=== PATIENT | male | born 1965 | race Caucasian/White ===

== ENCOUNTER 2020-12-28 10:01 | Outpatient (REF) | payer OTHER, SELFPAY ==
[2020-12-28 10:04] LABS: MANUAL DIFF FLAG NO
[2020-12-28 10:37] LABS: Basophils Percent Auto 0.2 % (0-2); Eosinophils Absolute Auto 0.1 X10*3/uL (0.0-0.4); Eosinophils Percent Auto 1.6 % (0-4); Hematocrit 41.9 % (42.0-52.0); Hemoglobin 14.4 g/dl (14.0-18.0); Imm Gran Abs Auto 0.01 X10*3/uL (0.00-0.03); Imm Gran Pct Auto 0.2 % (0.0-0.4); Lymphocytes Percent Auto 23.2 % (20-40); Mean Corpuscular HGB Conc 34.4 g/dl (31.0-36.0); Mean Corpuscular Hemoglobin 31.6 pg (27.0-33.0); Mean Corpuscular Volume 91.9 fL (80.0-98.0); Mean Platelet Volume 10.4 fL (9.4-12.4); Monocytes Absolute Auto 0.6 X10*3/uL (0.1-1.2); Monocytes Percent Auto 12.7 % (2-11); Neutrophils Absolute Auto 2.8 x10*3/uL (2.0-8.3); Neutrophils Percent Auto 62.1 % (45-73); Platelet Count 290 X10*3/uL (160-400); Red Blood Count 4.56 X10*6/uL (4.60-5.80); White Blood Count 4.5 X10*3/uL (4.8-10.8)
[2020-12-28 10:56] LABS: Alanine Aminotransferase 32 U/L (0-40); Albumin Level 4.4 g/dL (3.5-5.0); Alkaline Phosphatase 63 U/L (39-117); Anion Gap 11 (12-20); Aspartate Amino Transferase 20 U/L (5-37); Bilirubin Total 0.5 mg/dL (0.0-1.0); Blood Urea Nitrogen 12 mg/dL (9-16); Calcium 8.8 mg/dL (8.4-10.2); Carbon Dioxide 30 mmol/L (22-29); Chloride 101 mmol/L (96-108); Cholesterol 184 mg/dL; Estimated Glomerular Filt Rate > 60; Glucose Fasting 93 mg/dL (60-99); HDL Cholesterol 48 mg/dL; LDL Cholesterol Calculated 127 mg/dl; Potassium 4.1 mmol/L (3.3-5.1); Sodium 138 mmol/L (135-145); Total Protein 6.9 g/dL (6.5-8.0); Triglycerides 47 mg/dL
[2020-12-28 11:09] LABS: Appearance Urine CLEAR; Color Urine YELLOW; Glucose Urine UA NEG (NEG); Leukocyte Esterase Urine NEG (NEG); Nitrite Urine NEG (NEG); Urine Blood NEG (NEG); Urine Ketones NEG (NEG); Urine Protein NEG (NEG-TRACE)
[2020-12-28 11:18] LABS: PSA,Total (Free>4and<10) 0.73 ng/mL (0.00-4.00)
== END 2020-12-28 10:02 | disposition home or self-care (01) ==
LOC: HO.LNP 10:01
PROVIDERS: PCP Internal Medicine; Visit Provider Internal Medicine
DX: Z00.00 Encounter for general adult medical examination without abnormal findings (principal); Z12.5 Encounter for screening for malignant neoplasm of prostate; I10 Essential (primary) hypertension
CPT/HCPCS: 80053; 80061; 81003; 84153; 85025

== ENCOUNTER 2022-01-27 12:01 | Outpatient (REF) | payer BC, SELFPAY ==
[2022-01-27 12:04] LABS: MANUAL DIFF FLAG NO
[2022-01-27 12:08] LABS: Basophils Percent Auto 0.4 % (0-2); Eosinophils Absolute Auto 0.1 X10*3/uL (0.0-0.4); Eosinophils Percent Auto 1.6 % (0-4); Hematocrit 41.7 % (42.0-52.0); Hemoglobin 14.3 g/dl (14.0-18.0); Imm Gran Abs Auto 0.01 X10*3/uL (0.00-0.03); Imm Gran Pct Auto 0.2 % (0.0-0.4); Lymphocytes Absolute Auto 1.2 X10*3/uL (1.2-4.9); Lymphocytes Percent Auto 23.9 % (20-40); Mean Corpuscular HGB Conc 34.3 g/dl (31.0-36.0); Mean Corpuscular Hemoglobin 31.8 pg (27.0-33.0); Mean Corpuscular Volume 92.9 fL (80.0-98.0); Mean Platelet Volume 10.7 fL (9.4-12.4); Monocytes Absolute Auto 0.6 X10*3/uL (0.1-1.2); Monocytes Percent Auto 12.3 % (2-11); Neutrophils Percent Auto 61.6 % (45-73); Platelet Count 270 X10*3/uL (160-400); Red Blood Count 4.49 X10*6/uL (4.60-5.80); Red Cell Distribution Width 11.9 % (11.0-16.0); White Blood Count 4.9 X10*3/uL (4.8-10.8)
[2022-01-27 12:09] LABS: Appearance Urine Clear; Color Urine Yellow; Glucose Urine UA Negative (Negative); Leukocyte Esterase Urine Negative (Negative); Nitrite Urine Negative (Negative); Specific Gravity - Urine 1.015 (1.005-1.025); Urine Blood Negative (Negative); Urine Ketones Negative (Negative); Urine Protein Negative (Neg-Trace)
[2022-01-27 12:12] LABS: Bacteria Urine None Seen (None Seen); Hyaline Casts Urine 0-2 /LPF (0-2); RBC Urine 0-2 /HPF (0-2); Squamous Epithelial Cell Urine 0-2 /HPF (0-2); WBC Urine 0-5 /HPF (0-5)
[2022-01-27 13:10] LABS: Alanine Aminotransferase 26 U/L (0-40); Albumin Level 4.5 g/dL (3.5-5.0); Alkaline Phosphatase 65 U/L (39-117); Anion Gap 11 (12-20); Aspartate Amino Transferase 20 U/L (5-37); Bilirubin Total 0.7 mg/dL (0.0-1.0); Blood Urea Nitrogen 18 mg/dL (9-16); Calcium 9.1 mg/dL (8.4-10.2); Carbon Dioxide 29 mmol/L (22-29); Chloride 103 mmol/L (96-108); Cholesterol 215 mg/dL; Estimated Glomerular Filt Rate > 60; Glucose Fasting 91 mg/dL (60-99); HDL Cholesterol 55 mg/dL; LDL Cholesterol Calculated 148 mg/dl; PSA,Total (Free>4and<10) 0.79 ng/mL (0.00-4.00); Potassium 4.1 mmol/L (3.3-5.1); Sodium 139 mmol/L (135-145); Total Protein 6.9 g/dL (6.5-8.0); Triglycerides 64 mg/dL
== END 2022-01-27 12:02 | disposition home or self-care (01) ==
LOC: HO.LNP 12:01
PROVIDERS: Visit Provider Internal Medicine
DX: Z00.00 Encounter for general adult medical examination without abnormal findings (principal); Z12.5 Encounter for screening for malignant neoplasm of prostate; I10 Essential (primary) hypertension
CPT/HCPCS: 80053; 80061; 81001; 84153; 85025

== ENCOUNTER 2023-02-01 11:15 | Outpatient (REF) | payer BC, SELFPAY ==
[2023-02-01 11:18] LABS: MANUAL DIFF FLAG NO
[2023-02-01 11:26] LABS: Basophils Percent Auto 0.2 % (0-2); Eosinophils Absolute Auto 0.1 X10*3/uL (0.0-0.4); Eosinophils Percent Auto 1.4 % (0-4); Hematocrit 41.4 % (42.0-52.0); Hemoglobin 14.2 g/dl (14.0-18.0); Imm Gran Abs Auto 0.02 X10*3/uL (0.00-0.03); Imm Gran Pct Auto 0.4 % (0.0-0.4); Lymphocytes Absolute Auto 1.3 X10*3/uL (1.2-4.9); Lymphocytes Percent Auto 25.5 % (20-40); Mean Corpuscular HGB Conc 34.3 g/dl (31.0-36.0); Mean Corpuscular Hemoglobin 31.1 pg (27.0-33.0); Mean Corpuscular Volume 90.6 fL (80.0-98.0); Mean Platelet Volume 10.5 fL (9.4-12.4); Monocytes Absolute Auto 0.6 X10*3/uL (0.1-1.2); Monocytes Percent Auto 11.4 % (2-11); Neutrophils Percent Auto 61.1 % (45-73); Platelet Count 270 X10*3/uL (160-400); Red Blood Count 4.57 X10*6/uL (4.60-5.80); Red Cell Distribution Width 12.2 % (11.0-16.0)
[2023-02-01 11:28] LABS: Appearance Urine Clear; Color Urine Yellow; Glucose Urine UA Negative (Negative); Leukocyte Esterase Urine Negative (Negative); Nitrite Urine Negative (Negative); PH 7.5 (5.0-9.0); Specific Gravity - Urine 1.015 (1.005-1.025); Urine Blood Negative (Negative); Urine Ketones Negative (Negative); Urine Protein Negative (Neg-Trace)
[2023-02-01 11:44] LABS: Bacteria Urine None Seen (None Seen); Hyaline Casts Urine 0-2 /LPF (0-2); RBC Urine 0-2 /HPF (0-2); Squamous Epithelial Cell Urine 0-2 /HPF (0-2); WBC Urine 0-5 /HPF (0-5)
[2023-02-01 11:50] LABS: Alanine Aminotransferase 28 U/L (0-40); Albumin Level 4.4 g/dL (3.5-5.0); Alkaline Phosphatase 59 U/L (39-117); Anion Gap 11 (12-20); Aspartate Amino Transferase 20 U/L (5-37); Bilirubin Total 0.6 mg/dL (0.0-1.0); Blood Urea Nitrogen 13 mg/dL (9-16); Calcium 9.3 mg/dL (8.4-10.2); Carbon Dioxide 31 mmol/L (22-29); Chloride 102 mmol/L (96-108); Cholesterol 204 mg/dL (<200); Estimated Glomerular Filt Rate > 60; Glucose Fasting 91 mg/dL (60-99); HDL Cholesterol 56 mg/dL (>40); LDL Cholesterol Calculated 135 mg/dL (<100); Sodium 140 mmol/L (135-145); Total Protein 7.2 g/dL (6.5-8.0); Triglycerides 68 mg/dL (<150)
[2023-02-01 12:13] LABS: PSA,Total (Free>4and<10) 0.77 ng/mL (0.00-4.00)
== END 2023-02-01 11:16 | disposition home or self-care (01) ==
LOC: HO.LNP 11:15
PROVIDERS: Visit Provider Internal Medicine
DX: Z00.00 Encounter for general adult medical examination without abnormal findings (principal); Z12.5 Encounter for screening for malignant neoplasm of prostate; E78.00 Pure hypercholesterolemia, unspecified; I10 Essential (primary) hypertension
CPT/HCPCS: 80053; 80061; 81001; 84153; 85025

== ENCOUNTER 2023-08-17 06:58 | Day surgery (SDC) | payer OTHER, SELFPAY ==
[2023-08-15 11:44] VITALS: BMI 26.1
--- NOTE | 2023-08-16 10:29 | P.CONAN_ITS ---
Documented by User: Eileen Ramsey NP 08/16/23 10:29 HPI - Anesthesia Eval Consult details Narrative: 58yo M for Colonoscopy [facility] Past Medical History Medical History (Updated 08/15/23 @ 11:41 by Bhavani Araujo RN) HTN (hypertension) Hemorrhoids Surgical History Surgical History (Updated 08/15/23 @ 11:42 by Bhavani Araujo RN) History of hemorrhoidectomy Hx of hernia repair H/O colonoscopy Social History Social History Patient Tobacco Use Status: Never used Tobacco Advance Directives: No Advance Directives Information Provided: Yes Recently lost weight without trying: No Nutrition Risks: No Nutritional Risk Meds Allergies Allergy/AdvReac Type Severity Reaction Status Date / Time No Known Allergies Allergy Unverified 10/23/19 16:08 Home Medications ?Medication ?Instructions ?Recorded ?Confirmed ?Last Taken ?Type losartan 50 mg-hydrochlorothiazide 1 tab PO DAILY 08/15/23 08/17/23 08/17/23 History 12.5 mg tablet Exam Height,Weight and Vital Signs: Height 6 ft 0.5 in Weight 88.451 kg Assessment and Plan Assessment Anesthesia Assessment: Chart Reviewed Documented by User: Marizol Dove MD 08/17/23 07:36 [facility] Past Medical History Medical History (Updated 08/15/23 @ 11:41 by Bhavani Araujo RN) HTN (hypertension) Hemorrhoids Family History Family history of problems with anesthesia: No Surgical History Surgical History (Updated 08/15/23 @ 11:42 by Bhavani Araujo RN) History of hemorrhoidectomy Hx of hernia repair H/O colonoscopy History of Problems with Anesthesia: No Social History Social History Patient Tobacco Use Status: Never used Tobacco Advance Directives: No Advance Directives Information Provided: Yes Recently lost weight without trying: No Nutrition Risks: No Nutritional Risk Meds Allergies Allergy/AdvReac Type Severity Reaction Status Date / Time No Known Allergies Allergy Unverified 10/23/19 16:08 Home Medications ?Medication ?Instructions ?Recorded ?Confirmed ?Last Taken ?Type losartan 50 mg-hydrochlorothiazide 1 tab PO DAILY 08/15/23 08/17/23 08/17/23 History 12.5 mg tablet Exam Airway Mallampati Class: II TM Dist: >3cm Neck ROM: Full Assessment and Plan Assessment Anesthesia Assessment: Anesthesia Plan Discussed Final Anesthetic Review Family History of Problems with Anesthesia: No History of Problems with Anesthesia: No NPO: Yes ASA Class: II Final Preanesthetic Review: No Changes in Pt Med Stat, Meds/Allgs Chart Reviewed, Consent Obtained/Reviewed and Anes Risks/Benef Reviewed Patient Risk: Low Procedure Risk: Low Anesthetic Plan Anesthetic Plan: TIVA Disposition: Standard PACU
[2023-08-17 06:59] VITALS: BP 118/77; PULSE 70; RESP 18; TEMP 36.9; O2SAT 98; BMI 26.3
[2023-08-17] MEDS: Lactated Ringers 1,000 ML 100 ML IVCONT (07:19)
--- NOTE | 2023-08-17 08:15 | P.HPSUR_ITS ---
Pre-Procedural Eval Section A - 24 Hr Update-Section A only Date of Service: 08/17/23 Section B - Complete if H&P > 30 days Chief Complaint: Encounter for screening for malignant neoplasm of Details of Present Illness: see H&P no changes Relevant Family History (Specify if Yes): No Relevant Social History: None Present Medications: see Short Stay Collaborative assessment Medical History: No relevant PMH History of Previous Operations: No relevant previous surgery Allergies: Allergies Allergy/AdvReac Type Severity Reaction Status Date / Time No Known Allergies Allergy Unverified 10/23/19 16:08 Review of Systems Sugical H&P ROS: Negative: Constitution, Cardiovascular, Respiratory, Neurological, Psychiatric, Hem-Onc, Allergic/Immunologic, Gastrointestinal, Genitourinary, Musculoskeletal, Integumentary, Endocrine and Eyes/Ears/ Nose/Throat Exam Surgical H&P Exam: Normal: HEENT, Normal: Heart, Normal: Lungs, Normal: Extremities, Normal: Abdomen, Normal: Skin and Normal: Neurological Plan Diagnosis/Plan: Unchanged I have reviewed the history and physical and performed a pertinent physical examination on my patient. No changes have occurred unless specified. Time Spent With Patient Time: Total time managing care of this patient today ____ minutes.
[2023-08-17 08:52] VITALS: BP 90/50; PULSE 66; RESP 16; TEMP 36.4; O2SAT 96
[2023-08-17 08:58] VITALS: BP 96/63; PULSE 63; RESP 16; O2SAT 96
[2023-08-17 09:05] VITALS: BP 101/70; PULSE 73; RESP 16; O2SAT 96
[2023-08-17 09:20] VITALS: BP 111/68; PULSE 50; RESP 16; TEMP 36.2; O2SAT 99
[2023-08-17 09:34] VITALS: BP 110/76; PULSE 52; RESP 16; TEMP 36.2; O2SAT 99
--- NOTE | 2023-08-17 09:55 | OP_ITS ---
DATE OF SERVICE: 08/17/2023 SURGEON: Jamar Muhammad MD INDICATIONS: Colon cancer screening. PREOPERATIVE DIAGNOSIS: POSTOPERATIVE DIAGNOSIS: PROCEDURE PERFORMED: Colonoscopy to the cecum. ESTIMATED BLOOD LOSS: COMPLICATIONS: ANESTHESIA: Monitored anesthesia care. ASSISTANTS: SPECIMENS: DESCRIPTION OF PROCEDURE: A history and physical was performed. The risks and benefits of the procedure were explained to the patient and informed consent was obtained. The patient was placed in the left lateral decubitus position. A digital rectal exam was performed and was found to be normal. The Olympus pediatric video colonoscope was introduced into the rectum and advanced to the cecum. The cecum was identified by transillumination, palpation, and identification of ileocecal valve. Examination was performed and the scope was removed. He tolerated the procedure well and was returned to recovery area in stable condition. FINDINGS: The terminal ileum was not examined. The visualized colonic mucosa was normal. The quality of the prep was good. No polyps were identified. Retroflexed examination showed small internal hemorrhoids. There was mild sigmoid diverticulosis. IMPRESSION: Normal colonoscopy. RECOMMENDATIONS: 1. Follow up as needed. 2. Repeat colonoscopy is recommended in 10 years for average-risk individuals. MD GINGER Henderson/ARTUR / [phone]
== END 2023-08-17 09:55 | disposition home or self-care (01) ==
PROVIDERS: PCP Internal Medicine; Visit Provider Internal Medicine Gastroenterology
PROC: 0DJD8ZZ Inspection of Lower Intestinal Tract, Via Natural or Artificial Opening Endoscopic (ICD-10-PCS; CPT 45378; principal; 2023-08-17 08:20)
DX: Z12.11 Encounter for screening for malignant neoplasm of colon (principal); K57.30 Diverticulosis of large intestine without perforation or abscess without bleeding; K64.8 Other hemorrhoids; I10 Essential (primary) hypertension
CPT/HCPCS: 45378; J2704

== ENCOUNTER 2024-03-04 10:49 | Outpatient (REF) | payer OTHER, SELFPAY ==
[2024-03-04 10:52] LABS: MANUAL DIFF FLAG NO
[2024-03-04 11:05] LABS: Basophils Percent Auto 0.2 % (0-2); Eosinophils Percent Auto 0.7 % (0-4); Hematocrit 42.4 % (42.0-52.0); Hemoglobin 14.3 g/dl (14.0-18.0); Imm Gran Abs Auto 0.01 X10*3/uL (0.00-0.03); Imm Gran Pct Auto 0.2 % (0.0-0.4); Lymphocytes Percent Auto 23.9 % (20-40); Mean Corpuscular HGB Conc 33.7 g/dl (31.0-36.0); Mean Corpuscular Hemoglobin 31.2 pg (27.0-33.0); Mean Corpuscular Volume 92.4 fL (80.0-98.0); Mean Platelet Volume 10.3 fL (9.4-12.4); Monocytes Absolute Auto 0.5 X10*3/uL (0.1-1.2); Monocytes Percent Auto 12.9 % (2-11); Neutrophils Absolute Auto 2.5 x10*3/uL (2.0-8.3); Neutrophils Percent Auto 62.1 % (45-73); Platelet Count 265 X10*3/uL (160-400); Red Blood Count 4.59 X10*6/uL (4.60-5.80); Red Cell Distribution Width 12.1 % (11.0-16.0)
[2024-03-04 11:09] LABS: Appearance Urine Clear; Color Urine Yellow; Glucose Urine UA Negative (Negative); Leukocyte Esterase Urine Negative (Negative); Nitrite Urine Negative (Negative); Urine Blood Negative (Negative); Urine Ketones Trace mg/dL (Negative); Urine Protein Negative (Neg-Trace)
[2024-03-04 11:15] LABS: Bacteria Urine None Seen (None Seen); Hyaline Casts Urine 0-2 /LPF (0-2); RBC Urine 0-2 /HPF (0-2); Squamous Epithelial Cell Urine 0-2 /HPF (0-2); WBC Urine 0-5 /HPF (0-5)
[2024-03-04 11:24] LABS: Alanine Aminotransferase 31 U/L (0-40); Albumin Level 4.4 g/dL (3.5-5.0); Alkaline Phosphatase 60 U/L (39-117); Anion Gap 9 (12-20); Aspartate Amino Transferase 23 U/L (5-37); Bilirubin Total 0.5 mg/dL (0.0-1.0); Blood Urea Nitrogen 12 mg/dL (9-16); Calcium 8.6 mg/dL (8.4-10.2); Carbon Dioxide 30 mmol/L (22-29); Chloride 103 mmol/L (96-108); Cholesterol 187 mg/dL (<200); Estimated Glomerular Filt Rate > 60; Glucose Fasting 91 mg/dL (60-99); HDL Cholesterol 50 mg/dL (>40); LDL Cholesterol Calculated 126 mg/dL (<100); Sodium 138 mmol/L (135-145); Total Protein 7.5 g/dL (6.5-8.0); Triglycerides 55 mg/dL (<150)
[2024-03-04 11:53] LABS: PSA,Total (Free>4and<10) 0.79 ng/mL (0.00-4.00)
--- OUTSIDE RECORDS SUMMARY | 2024-03-04 11:56 | XMS_ITS | Patient Health Record ---
Author Organization [facility] Address [address] [place] [address] Care Team Providers Care Html Developer Name Role Phone Dominick Cruz MD Primary Care Provider Valdo Damon Unavailable [phone] Allergies No Known Allergies Reason For Referral No Information Medications Medication SIG (Take, Route, Frequency, Duration) Notes Start Date End Date Status Irbesartan-hydroCHLOROth iazide 150-12.5 MG 1 tablet Orally Once a day for 30 day(s) Active Night Splint AFO - L1930 as directed 05/06/2019 Not-Taking Social History Tobacco Use: Social History Observation Description Date Details (start date - stop date) Never Smoker NA - NA Tobacco Use/Smoking Question Answer Notes Are you a: nonsmoker Alcohol Screen Question Answer Notes Did you have a drink contain ing alcohol in the past year? Yes How often did you have a dri nk containing alcohol in the past year? 2 to 4 times a month (2 points) Points 2 Interpretation Negative Tobacco use other than smoking: Question Answer Notes Are you an other tobacco user? No Vital Signs Height 6ft 0in in 05/01/2023 Weight 190 lbs 05/01/2023 BMI 25.77 kg/m2 05/01/2023 Encounters Encounter Location Date Provider Diagnosis [facility] [address] [place] [address] 05/01/2023 Valdo Marcelino Pain in left foot M79.672 ; Pain in left ankle and joints of left foot M25.572 ; Bursitis of intermetatarsal bursa of left foot M77.52 and Metatarsalgia, left foot M77.42 [facility] [address] [place] [address] 06/13/2023 Valdo Marcelino Assessments Encounter Date Diagnosis (ICD Code) Assessment Notes Treatment Notes Treatment Clinical Notes Section Notes 05/01/2023 Pain in left ankle and joints of left foot (ICD-10 - M25.572) 05/01/2023 Pain in left foot (ICD-10 - M79.672) 05/01/2023 Bursitis of intermetatarsal bursa of left foot (ICD-10 - M77.52) 05/01/2023 Metatarsalgia, left foot (ICD-10 - M77.42) Plan Of Treatment Pending Test Test Name Order Date X ray : Foot, left 3V 05/01/2023 Insurance Providers Payer Name Payer Address Payer Phone Subscriber Number Group Number Insured Name Patient Relationship to Insured Coverage Start Date Coverage End Date [facility] [address] [place] [phone] [id number] Eder Narvaez Self - patient is the insured Medical (General) History Medical History History ICD Code High blood pressure Chicken pox Surgical History Surgery Date(Month/Year) hernia
--- OUTSIDE RECORDS SUMMARY | 2024-03-04 11:56 | XMS_ITS | Patient Health Record ---
Author Organization Dominick Cruz MD Address [address] [place], [place] [id number] Care Team Providers Care Core Piler Name Role Phone Dominick Cruz Primary Care Provider Allergies No Known Allergies Results Component Value Reference Range Notes Complete Blood Count Auto Di ff (Not yet reviewed by provider) Interpretation: Performing Lab:[facility], [address] [place] [phone] Notes/Report: White Blood Count 4.0 4.8-10.8 X10*3/uL Red Blood Count 4.59 4.60-5.80 X10*6/uL Hemoglobin 14.3 14.0-18.0 g/dl Hematocrit 42.4 42.0-52.0 % Mean Corpuscular Volume 92.4 80.0-98.0 fL Mean Corpuscular Hemoglobin 31.2 27.0-33.0 pg Mean Corpuscular HGB Conc 33.7 31.0-36.0 g/dl Red Cell Distribution Width 12.1 11.0-16.0 % Platelet Count 265 160-400 X10*3/uL Mean Platelet Volume 10.3 9.4-12.4 fL Neutrophils Percent Auto 62.1 45-73 % Imm Gran Pct Auto 0.2 0.0-0.4 % Lymphocytes Percent Auto 23.9 20-40 % Monocytes Percent Auto 12.9 2-11 % Eosinophils Percent Auto 0.7 0-4 % Basophils Percent Auto 0.2 0-2 % NRBC Pct Auto 0.0 0.0-0.2 /100WBC Neutrophils Absolute Auto 2.5 2.0-8.3 x10*3/u L Imm Gran Abs Auto 0.01 0.00-0.03 X10*3/uL Lymphocytes Absolute Auto 1.0 1.2-4.9 X10*3/u L Monocytes Absolute Auto 0.5 0.1-1.2 X10*3/uL Eosinophils Absolute Auto 0.0 0.0-0.4 X10*3/u L Basophils Absolute Auto 0.0 0.0-0.2 X10*3/uL NRBC Abs Auto 0.000 0.0-0.012 X10*3/uL Comprehensive [place]. Panel Fa (Not yet reviewed by provider) Interpretation: Performing Lab:[facility], [address] [place] [phone] Notes/Report: Sodium 138 135-145 mmol/L Potassium 4.0 3.3-5.1 mmol/L Chloride 103 96-108 mmol/L Carbon Dioxide 30 22-29 mmol/L Anion Gap 9 12-20 Blood Urea Nitrogen 12 9-16 mg/dL Creatinine 0.82 0.5-1.4 mg/dL Estimated Glomerular Filt Rate > 60 Chronic Kidney Disease: Estimated GFR < 60 mL/min/1.73m2 Severe Kidney Disease: Estimated GFR < 15 mL/min/1.73m2 Glucose Fasting 91 60-99 mg/dL Calcium 8.6 8.4-10.2 mg/dL Bilirubin Total 0.5 0.0-1.0 mg/dL Aspartate Amino Transferase 23 5-37 U/L Alanine Aminotransferase 31 0-40 U/L Total Protein 7.5 6.5-8.0 g/dL Albumin Level 4.4 3.5-5.0 g/dL Alkaline Phosphatase 60 39-117 U/L Lipid Panel (Not yet reviewe d by provider) Interpretation: Performing Lab:[address] [phone] Notes/Report: Triglycerides 55 <150 mg/dL Desirable Triglyceride: less than 150 mg/dL Borderline High Triglyceride 150-199 mg/dL High Triglyceride: 200-499 mg/dL Very High Triglyceride: greater than or equal to 5OO mg/dL Cholesterol 187 <200 mg/dL Desirable Cholesterol: less than 200 mg/dL Borderline High Cholesterol: 200-239 mg/dL High Cholesterol: greater than 239 mg/dL LDL Cholesterol Calculated 126 <100 mg/dL Desirable LDL: less than 100 mg/dL Near Optimal/Above Optimal LDL: 110-129 mg/dL Borderline High LDL: 130-159 mg/dL High LDL: 160-189 mg/dL Very High LDL: greater than or equal to 190 mg/dL HDL Cholesterol 50 >40 mg/dL Desirable HDL: greater than 40 mg/dL Note: This HDL assay may give artificially low results in patients with liver disease. PSA,Total (Free>4and<10) (No t yet reviewed by provider) Interpretation: Performing Lab:[address] [phone] Notes/Report: PSA,Total (Free>4and<10) 0.79 0.00-4.00 ng/mL A Free PSA was not performed: The percentage of Free PSA can be used to enhance the differentiation of prostate cancer from benign prostatic disease in subjects whose PSA levels are between 4.0 and 10.0 ng/mL. For subjects whose PSA levels are below 4.0 or above 10.0 ng/mL, the risk of prostate cancer is determined on the basis of the PSA alone. Therefore the % Free PSA is recommended only for those subjects whose PSA levels are between 4.0 and 10.0 ng/mL. PSA methodology: Vincent Alinity i Chemiluminescent Microparticle Immunoassay (CMIA) UA ClnCatch+Micro w/rflx Cul t (Not yet reviewed by provider) Interpretation: Performing Lab:[address] [phone] Notes/Report: Urine, Clean Catch Color Urine Yellow Appearance Urine Clear PH 7.0 5.0-9.0 Glucose Urine UA Negative Negative mg/dL Urine Blood Negative Negative Specific [place] - Urine 1.020 1.005-1.025 Urine Protein Negative Neg-Trace mg/dL Urine Ketones Trace Negative mg/dL Nitrite Urine Negative Negative Leukocyte Esterase Urine Negative Negative RBC Urine 0-2 0-2 /HPF WBC Urine 0-5 0-5 /HPF Squamous Epithelial Cell Urine 0-2 0-2 /HPF Bacteria Urine None Seen None Seen Hyaline Casts Urine 0-2 0-2 /LPF Reason For Referral No Information Medications Medication SIG (Take, Route, Frequency, Duration) Notes Start Date End Date Status Irbesartan-hydroCHLOROthia zide 150-12.5 MG TAKE ONE TABLET BY MOUTH EVERY DAY for 90 Active Immunizations Vaccine Route Administration Date Status Comme nts Flu Vaccine Unknown 11/21/2013 Administered work TDaP IM Intramuscular 02/16/2014 Administered Flu Vaccine IM Intramuscular 10/30/2014 Administered Fluarix Quadrivalent IM Intramuscular 11/02/2015 Administe red Fluarix Quadrivalent IM Intramuscular 11/14/2016 Administe red Fluarix Quadrivalent IM Intramuscular 11/20/2017 Administe red Fluarix Quadrivalent IM Intramuscular 12/03/2018 Administe red Fluarix Quadrivalent Unknown 12/03/2019 Administered At work SARS-COV-2 Moderna Unknown 01/12/2021 Administered Fluarix Quadrivalent Unknown 11/10/2020 Administered Tetanus Unknown 02/16/2014 Pending Social History Tobacco Use: Social History Observation Description Date Details (start date - stop date) Never Smoker NA - NA Tobacco Use/Smoking Question Answer Notes Patient is a nonsmoker Additional Findings: Tobacco Non-User Cu rrent non-smoker, currently using no form of tobacco Alcohol Screen Question Answer Notes Did you have a drink contain ing alcohol in the past year? Yes How often did you have a dri nk containing alcohol in the past year? 2 to 4 times a month (2 points) How many drinks did you have on a typical day when you were drinking in the past year? 1 or 2 drinks (0 point) How often did you have 6 or more drinks on one occasion in the past year? 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 confirmed Procedures Procedure Date Ordered Date Performed Result Body Sit e Colonoscopy, Screening 08/17/2023 08/17/2023 10 ye ar repeat colonoscopy Encounters Encounter Location Date Provider Diagnosis Dominick Cruz MD [address] [place] [address] Drive [address] [place] [phone] 03/04/2024 Dominick Cruz Blood tests for rout ine general physical examination Z00.00 ; Essential hypertension I10 and Hypercholesterolemia E78.00 Assessments Encounter Date Diagnosis (ICD Code) Assessment Notes Treatment Notes Treatment Clinical Notes Section Notes 03/04/2024 Blood tests for rout ine general physical examination (ICD-10 - Z00.00) 03/04/2024 Essential hypertensi on (ICD-10 - I10) 03/04/2024 Hypercholesterolemia (ICD-10 - E78.00) Plan Of Treatment Pending Test Test Name Order Date Electrocardiogram (EKG) 11/23/2016 Electrocardiogram (EKG) 11/29/2017 Electrocardiogram (EKG) 12/12/2018 Complete Blood Count Auto Diff 5 Comprehensive [place]. Panel Fast 5 Lipid Panel 03/04/2024 PSA,Total (Free>4and<10) 03/04/2024 UA ClnCatch+Micro w/rflx Cult 03/04/2024 Next Appt Details Provider Name:Dominick Rivera ier, 03/11/2024 01:00:00 PM, [address] [place] [address], [address], [place], [place], [phone], Insurance Providers Payer Name Payer Address Payer Phone Subscriber Number Group Number Insured Name Patient Relationship to Insured Coverage Start Date Coverage End Date [employer] [address] [place], [place] [id number] [phone] [id number] Eder Narvaez Self - patient is the insured Medical (General) History Medical History History ICD Code colonoscopy 07/19/2012 hyperp lastic polyp due in 10 yrs08/17/23 colonoscopy repeat 10 yrs Inguinal hernia Surgical History Surgery Date(Month/Year) Hemorrhoidectomy, and rubber band ligati on by Dr. Don 12/2015
--- OUTSIDE RECORDS SUMMARY | 2024-03-04 11:57 | XMS_ITS | Patient Health Record ---
Author Organization [facility] Address [address] [place] [address] Care Team Providers Care Dress Designer Name Role Phone Dominick Cruz MD Primary Care Provider Jamar Austin Jr ALLERGIES No Known Allergies REASON FOR REFERRAL No Information MEDICATIONS Medication SIG (Take, Route, Frequency, Duration) Notes Start Date End Date Status MiraLax (colon prep) 17 GM/SCOOP mixed with Gatorade or Crystal Light Orally begin at 5:00 p.m. the day before the procedure for 1 day 06/14/2023 Active Losartan Potassium-HCTZ Active SOCIAL HISTORY Sex Assigned At : Social History Observation Description Sex Assigned At Unknown Alcohol Screen Question Answer Notes Did you have a drink contain ing alcohol in the past year? Yes How often did you have a dri nk containing alcohol in the past year? Monthly or less (1 point) How many drinks did you have on a typical day when you were drinking in the past year? 1 or 2 drinks (0 point) How often did you have 6 or more drinks on one occasion in the past year? Never (0 point) Points 1 Interpretation Negative PROBLEMS Problem Type ICD Code Onset Dates Problem Status W/U Status Risk SNOMED Code Notes Problem Colon cancer screening (Z12.11) Active confirmed 649399309 VITAL SIGNS Blood pressure diastolic 00 mm Hg 06/14/2023 Height 72.50 in 06/14/2023 Blood pressure systolic 00 mm Hg 06/14/2023 Weight 195 lbs 06/14/2023 BMI 26.08 kg/m2 06/14/2023 Encounters Encounter Location Date Provider Diagnosis [facility] [address] [place] [phone] 08/17/2023 Jamar Muhammad Jr Encounter for screening colonoscopy Z12.11 [facility] [address] [place] [phone] 06/14/2023 Jamar Muhammad Jr Colon cancer screening Z12.11 and Encounter for other preprocedural examination Z01.818 [facility] [address] [facility] [address] [place] [phone] 06/15/2023 Jamar Muhammad Jr [facility] [address] [place] [address] Drive [address] [place] [phone] 07/04/2023 Jamar Muhammad Jr ASSESSMENTS Encounter Date Diagnosis Assessment Notes Treatment Notes Treatment Clinical Notes 08/17/2023 Encounter for screening colonoscopy (ICD-10 - Z12.11) 06/14/2023 Colon cancer screening (ICD-10 - Z12.11) Colonoscopy material was printed 06/14/2023 Encounter for other preprocedural examination (ICD-10 - Z01.818) PLAN OF TREATMENT Future Test Test Name Order Date COLONOSCOPY 06/05/2012 COLONOSCOPY 06/14/2023 Insurance Providers Payer Name Payer Address Payer Phone Subscriber Number Group Number Insured Name Patient Relationship to Insured Coverage Start Date Coverage End Date [facility] [address] [place] [phone] [id number] JODIE JEFF Self - patient is the insured MEDICAL (GENERAL) HISTORY Medical History History ICD Code Hemorrhoids Colonoscopy 07/18, hyperplastic polyp, te n-year followup Hypertension Surgical History Surgery Date(Month/Year) Right inguinal herniorrhaphy Hemorrhoidectomy 2015
--- OUTSIDE RECORDS SUMMARY | 2024-03-04 11:57 | XMS_ITS ---
Author Organization Dominick Cruz MD Address [address] [place], [place] [phone] Care Team Providers Care Digital Sales Assistant Name Role Phone Dominick Curz Primary Care Provider Results Component Value Reference Range Notes Complete Blood Count Auto Di ff (Not yet reviewed by provider) Interpretation: Performing Lab:[facility], [address] [place] [phone] Notes/Report: White Blood Count 4.0 4.8-10.8 X10*3/uL [...] NRBC Abs Auto 0.000 0.0-0.012 X10*3/uL Comprehensive [place]. Panel Fa st (Not yet reviewed by provider) Interpretation: Performing Lab:[facility], [address] [place] [phone] Notes/Report: Sodium 138 135-145 mmol/L Potassium 4.0 [...] yet reviewe d by provider) Interpretation: Performing Lab:[facility], [address] [place] [phone] Notes/Report: Triglycerides 55 <150 mg/dL Desirable Triglyceride: [...] t yet reviewed by provider) Interpretation: Performing Lab:[facility], [address] [place] [phone] Notes/Report: PSA,Total (Free>4and<10) 0.79 0.00-4.00 ng/mL A [...] (Not yet reviewed by provider) Interpretation: Performing Lab:[facility], [address] [place] [phone] Notes/Report: Urine, Clean Catch Color Urine Yellow Appearance Urine Clear PH 7.0 5.0-9.0 Glucose Urine UA Negative Negative mg/dL Urine Blood Negative Negative Specific [place] - Urine 1.020 1.005-1.025 Urine Protein Negative Neg-Trace mg/dL Urine Ketones Trace Negative mg/dL Nitrite Urine Negative Negative Leukocyte Esterase Urine Negative Negative RBC Urine 0-2 0-2 /HPF WBC Urine 0-5 0-5 /HPF Squamous Epithelial Cell Urine 0-2 0-2 /HPF Bacteria Urine None Seen None Seen Hyaline Casts Urine 0-2 0-2 /LPF REASON FOR VISIT yearly fasting labs Encounters Encounter Location Date Provider Diagnosis Dominick Cruz MD [address] [place] [phone] 03/04/2024 Dominick Cruz Blood tests for rout [...] Treatment Pending Test Test Name Order Date Complete Blood Count Auto Diff 5 Comprehensive [place]. Panel Fast 5 Lipid Panel 03/04/2024 PSA,Total (Free>4and<10) 03/04/2024 UA ClnCatch+Micro w/rflx Cult 03/04/2024 Next Appt Details Provider Name:Dominick Rivera ier, 03/11/2024 01:00:00 PM, [address] [place] [address], Suite [facility], [place], [place], [phone], Progress Notes * Eder NARVAEZ PDOB: [birth year] (58 yo M)Acc No.[id number]:03/04/2024 Progress Note Patient:?Eder NARVAEZ Provider:?Dominick Cruz MD :1965???Age:58 Y???Sex:Male Prasad e:03/04/2024 Address:[address] [place], [place] [phone] Subjective: * Chief Complaints: * ???1. Yearly fasting labs. * Medical History:? Objective: * Vitals:? Assessment: * Assessment: 1.?Blood tests for routine g eneral physical examination - Z00.00 (Primary)???2.?Essential hypertension - I10???3.?Hypercholesterolemia - E78.00??? Plan: * Treatment: 2.?Essential hypertension?LAB: Complete Blood Count Auto Diff (Collection Date & Time - 03/04/2024 07:00 AM) ?LAB: Comprehensive [place]. Panel Fast (Collection Date & Time - 03/04/2024 07:00 AM) ?LAB: Lipid Panel (Collection Date & Time - 03/04/2024 07:00 AM) ?LAB: PSA,Total (Free>4and<10) (Collection Date & Time - 03/04/2024 07:00 AM) ?LAB: UA ClnCatch+Micro w/rflx Cult (Collection Date & Time - 03/04/2024 07:00 AM) 3.?Hypercholesterolemia?LAB: Complete Blood Count Auto Diff (Collection Date & Time - 03/04/2024 07:00 AM) ?LAB: Comprehensive [place]. Panel Fast (Collection Date & Time - 03/04/2024 07:00 AM) ?LAB: Lipid Panel (Collection Date & Time - 03/04/2024 07:00 AM) ?LAB: PSA,Total (Free>4and<10) (Collection Date & Time - 03/04/2024 07:00 AM) ?LAB: UA ClnCatch+Micro w/rflx Cult (Collection Date & Time - 03/04/2024 07:00 AM) * Procedure Codes:?63565 VENIP UNCT, ROUTINE* * * The named appointment provid er may or may not be the originator of this progress note, and it is not deemed complete until electronically signed by the appointment provider. Sign off status: Pending * Provider:?Dominick Cruz MD Date:?0 03/04/2024 Generated for Mary nagy/Yousif/eTransmitting on:?03/04/2024 11:57 AM EST
--- OUTSIDE RECORDS SUMMARY | 2024-03-04 11:57 | XMS_ITS ---
Author Organization [facility] Address [address] [place] [id number] Care Team Providers Care Bulk Tank Driver Name Role Phone Dominick Cruz MD Primary Care Provider Jamar Austin Jr [phone] REASON FOR VISIT no referral Encounters Encounter Location Date Provider Diagnosis [facility] [address] [place] [address] 06/15/2023 Jamar Muhammad Jr PLAN OF TREATMENT No Information
--- OUTSIDE RECORDS SUMMARY | 2024-03-04 11:57 | XMS_ITS ---
Author Organization Dominick Cruz MD Address [address] [place], [place] [id number] Care Team Providers Care Electrical Designer Name Role Phone Dominick Cruz Primary Care Provider Results Component Value Reference Range Notes Complete Blood Count Auto Di ff Reviewed date:02/01/2023 01:07:10 PM Interpretation: Performing Lab:[facility], [address] [place] [id number] Notes/Report: White Blood Count 5.0 4.8-10.8 X10*3/uL Red Blood Count 4.57 4.60-5.80 X10*6/uL Hemoglobin 14.2 14.0-18.0 g/dl Hematocrit 41.4 42.0-52.0 % Mean Corpuscular Volume 90.6 80.0-98.0 fL Mean Corpuscular Hemoglobin 31.1 27.0-33.0 pg Mean Corpuscular HGB Conc 34.3 31.0-36.0 g/dl Red Cell Distribution Width 12.2 11.0-16.0 % Platelet Count 270 160-400 X10*3/uL Mean Platelet Volume 10.5 9.4-12.4 fL Neutrophils Percent Auto 61.1 45-73 % Imm Gran Pct Auto 0.4 0.0-0.4 % Lymphocytes Percent Auto 25.5 20-40 % Monocytes Percent Auto 11.4 2-11 % Eosinophils Percent Auto 1.4 0-4 % Basophils Percent Auto 0.2 0-2 % NRBC Pct Auto 0.0 0.0-0.2 /100WBC Neutrophils Absolute Auto 3.0 2.0-8.3 x10*3/u L Imm Gran Abs Auto 0.02 0.00-0.03 X10*3/uL Lymphocytes Absolute Auto 1.3 1.2-4.9 X10*3/u L Monocytes Absolute Auto 0.6 0.1-1.2 X10*3/uL Eosinophils Absolute Auto 0.1 0.0-0.4 X10*3/u L Basophils Absolute Auto 0.0 0.0-0.2 X10*3/uL NRBC Abs Auto 0.000 0.0-0.012 X10*3/uL Comprehensive Delta. Panel Fa st Reviewed date:02/01/2023 12:48:55 PM Interpretation: Performing Lab:[facility], [address] [place] [id number] Notes/Report: Sodium 140 135-145 mmol/L Potassium 4.0 3.3-5.1 mmol/L Chloride 102 96-108 mmol/L Carbon Dioxide 31 22-29 mmol/L Anion Gap 11 12-20 Blood Urea Nitrogen 13 9-16 mg/dL Creatinine 0.77 0.5-1.4 mg/dL Estimated Glomerular Filt Rate > 60 NOTE: For -Colombian individuals, multiply the result by 1.210. Chronic Kidney Disease: Estimated GFR < 60 mL/min/1.73m2 Severe Kidney Disease: Estimated GFR < 15 mL/min/1.73m2 Glucose Fasting 91 60-99 mg/dL Calcium 9.3 8.4-10.2 mg/dL Bilirubin Total 0.6 0.0-1.0 mg/dL Aspartate Amino Transferase 20 5-37 U/L Alanine Aminotransferase 28 0-40 U/L Total Protein 7.2 6.5-8.0 g/dL Albumin Level 4.4 3.5-5.0 g/dL Alkaline Phosphatase 59 39-117 U/L Lipid Panel Reviewed date:02/01/2023 12:39:56 PM Interpretation: Performing Lab:[address] [phone] Notes/Report: Triglycerides 68 <150 mg/dL Desirable Triglyceride: less than 150 mg/dL Borderline High Triglyceride 150-199 mg/dL High Triglyceride: 200-499 mg/dL Very High Triglyceride: greater than or equal to 5OO mg/dL Cholesterol 204 <200 mg/dL Desirable Cholesterol: less than 200 mg/dL Borderline High Cholesterol: 200-239 mg/dL High Cholesterol: greater than 239 mg/dL LDL Cholesterol Calculated 135 <100 mg/dL Desirable LDL: less than 100 mg/dL Near Optimal/Above Optimal LDL: 110-129 mg/dL Borderline High LDL: 130-159 mg/dL High LDL: 160-189 mg/dL Very High LDL: greater than or equal to 190 mg/dL HDL Cholesterol 56 >40 mg/dL Desirable HDL: greater than 40 mg/dL Note: This HDL assay may give artificially low results in patients with liver disease. PSA,Total (Free>4and<10) Reviewed date:02/01/2023 12:52:02 PM Interpretation: Performing Lab:[address] [phone] Notes/Report: PSA,Total (Free>4and<10) 0.77 0.00-4.00 ng/mL A Free PSA was not [...] Immunoassay (CMIA) UA ClnCatch+Micro w/rflx Cul t Reviewed date:02/01/2023 01:29:06 PM Interpretation: Performing Lab:[address] [phone] Notes/Report: Urine, Clean Catch Color Urine Yellow Appearance Urine Clear PH 7.5 5.0-9.0 Glucose Urine UA Negative Negative mg/dL Urine Blood Negative Negative Specific [place] - Urine 1.015 1.005-1.025 Urine Protein Negative Neg-Trace mg/dL Urine Ketones Negative Negative mg/dL Nitrite Urine Negative Negative Leukocyte Esterase Urine Negative Negative RBC Urine 0-2 0-2 /HPF WBC Urine 0-5 0-5 /HPF Squamous Epithelial Cell Urine 0-2 0-2 /HPF Bacteria Urine None Seen None Seen Hyaline Casts Urine 0-2 0-2 /LPF REASON FOR VISIT FASTING LABS Encounters Encounter Location Date Provider Diagnosis Dominick Cruz MD [address] [place], [place] [phone] 02/01/2023 Dominick Cruz Blood tests for rout ine general physical examination Z00.00 ; Essential hypertension I10 and Hypercholesterolemia E78.00 Assessments Encounter Date Diagnosis (ICD Code) Assessment Notes Treatment Notes Treatment Clinical Notes Section Notes 02/01/2023 Blood tests for rout ine general physical examination (ICD-10 - Z00.00) 02/01/2023 Essential hypertensi on (ICD-10 - I10) 02/01/2023 Hypercholesterolemia (ICD-10 - E78.00) Plan Of Treatment Next Appt Details Provider Name:Dominick Rivera ier, 03/11/2024 01:00:00 PM, [address], [address], [place], [place], [phone], Progress Notes * Eder NARVAEZ PDOB: [birth year] (58 yo M)Acc No.[id number]:02/01/2023 Progress Note Patient:?ZEINAEder RIOS Provider:?Dominick Cruz MD :1965???Age:57 Y???Sex:Male Prasad e:02/01/2023 Address:[address] [place] [address] Subjective: * Chief Complaints: * ???1. FASTING LABS. * Medical History:? Objective: * Vitals:? Assessment: * Assessment: 1.?Blood tests for routine g eneral physical examination - Z00.00 (Primary)???2.?Essential hypertension - I10???3.?Hypercholesterolemia - E78.00??? Plan: * Treatment: 2.?Essential hypertension?LAB: Complete Blood Count Auto Diff (Collection Date & Time - 02/01/2023 07:45 AM) ?LAB: Comprehensive Delta. Panel Fast (Collection Date & Time - 02/01/2023 07:45 AM) ?LAB: Lipid Panel (Collection Date & Time - 02/01/2023 07:45 AM) ?LAB: PSA,Total (Free>4and<10) (Collection Date & Time - 02/01/2023 07:45 AM) ?LAB: UA ClnCatch+Micro w/rflx Cult (Collection Date & Time - 02/01/2023 07:45 AM) 3.?Hypercholesterolemia?LAB: Complete Blood Count Auto Diff (Collection Date & Time - 02/01/2023 07:45 AM) ?LAB: Comprehensive Delta. Panel Fast (Collection Date & Time - 02/01/2023 07:45 AM) ?LAB: Lipid Panel (Collection Date & Time - 02/01/2023 07:45 AM) ?LAB: PSA,Total (Free>4and<10) (Collection Date & Time - 02/01/2023 07:45 AM) ?LAB: UA ClnCatch+Micro w/rflx Cult (Collection Date & Time - 02/01/2023 07:45 AM) * Procedure Codes:?56059 VENIP UNCT, ROUTINE* * * The named appointment provid er may or may not be the originator of this progress note, and it is not deemed complete until electronically signed by the appointment provider. Sign off status: Pending * Provider:?Dominick Cruz MD Date:?1 04/04/2022 Generated for Mary nagy/Yousif/Bri on:?03/04/2024 11:56 AM EST
--- OUTSIDE RECORDS SUMMARY | 2024-03-04 11:57 | XMS_ITS ---
Author Organization Dominick Cruz MD Address [address] [place] [phone] Care Team Providers Care Integrity Analyst Name Role Phone Dominick Cruz Primary Care Provider Allergies No Known Allergies Results Component Value Reference Range Notes Occult Blood, Stool, Guaiac Reviewed date:02/15/2023 09:55:05 AM Interpretation:Negative Performing Lab: Notes/Report: Negative Occult Blood, Stool, Guaiac Neg REASON FOR VISIT ANNUAL EXAM, overdue for colonoscopy, No Covid symptoms, c/o left top of foot pain x 5 months Medications Medication SIG (Take, Route, Frequency, Duration) Notes Start Date End Date Status Irbesartan-hydroCHLOROthia zide 150-12.5 MG TAKE ONE TABLET BY MOUTH ONCE DAILY for 90 Active Social History Tobacco Use: Social History Observation [...] Never (0 point) Points 2 Interpretation Negative Vital Signs Blood pressure systolic 132 mm Hg 02/08/19 24 Blood pressure diastolic 70 mm Hg 024 Height 72 in 02/08/2023 Weight 194 lbs 02/08/2023 BMI 26.31 kg/m2 02/08/2023 weight is down 3 pounds [facility] 02-03-22 Encounters Encounter Location Date Provider Diagnosis Dominick Cruz MD [address] [place] [address] [place] [phone] 02/08/2023 Dominick Cruz Capsulitis of toe of left foot M77.52 ; Annual physical exam Z00.00 ; Colon cancer screening Z12.11 ; Essential hypertension I10 ; Hypercholesterolemia E78.00 and Depression screening Z13.31 Assessments Encounter Date Diagnosis (ICD Code) Assessment Notes Treatment Notes Treatment Clinical Notes Section Notes 02/08/2023 Capsulitis of toe of left foot (ICD-10 - M77.52) referral to dr travis/ patient will be calling office to book their own appt 02/08/2023 Annual physical exam (ICD-10 - Z00.00) labs reviewed and discussed with patient 02/08/2023 Colon cancer screeni ng (ICD-10 - Z12.11) referral to dr tucker/ patient will be calling office to book their own appt, guaiac negative 02/08/2023 Essential hypertensi on (ICD-10 - I10) stable, will continue current regiment 02/08/2023 Hypercholesterolemia (ICD-10 - E78.00) stable, will continue current regiment 02/08/2023 Depression screening (ICD-10 - Z13.31) negative screen Plan Of Treatment Treatment Notes Assessment Notes Capsulitis of toe of left foot referral to dr travis/ patient will be calling office to book their own appt Annual physical exam labs reviewed and d iscussed with patient Colon cancer screening referral to dr nilay holguin/ patient will be calling office to book their own appt, guaiac negative Essential hypertension stable, will cont inue current regiment Hypercholesterolemia stable, will contin ue current regiment Depression screening negative screen Next Appt Details Follow Up: 1 Year, Reason: Provider Name:Dominick lerma, 03/11/2024 01:00:00 PM, [address] [facility], [address], [place], [place], [id number], Progress Notes * Eder NAVRAEZ PDOB: [birth year] (57 yo M)Acc No.[id number]:02/08/2023 Progress Notes Patient:?Eder Narvaez Camryn Provider:?Dominick Cruz MD :1965???Age:57 Y???Sex:Male Prasad e:02/08/2023 Address:[address] [place], [place] [phone] Subjective: * Chief Complaints: * ???ANNUAL EXAMOverdue for co lonoscopy No Covid symptomsC/o left top of foot pain x 5 months * HPI: ???Depression Screening:?PHQ-9?Little interest or pleasure in doing things?Not at all,?Feeling down, depressed, or hopeless?Not at all,?Trouble falling or staying asleep, or sleeping too much?Not at all,?Feeling tired or having little energy?Not at all,?Poor appetite or overeating?Not at all,?Feeling bad about yourself or that you are a failure, or have let yourself or your family down?Not at all,?Trouble concentrating on things, such as reading the newspaper or watching television?Not at all,?Moving or speaking so slowly that other people could have noticed; or the opposite, being so fidgety or restless that you have been moving around a lot more than usual?Not at all,?Thoughts that you would be better off or of hurting yourself in some way?Not at all,?Total Score?0.?Interpretation and Intervention?Depression Screening Findings?Negative,?Follow-Up for Depression?: review of PHQ-9 found negative result, no follow-up needed.? patient is a 57 yo male here for yearly evaluation with review of recent labs and follow up of chronic isues. / left foot has been bothering/ on the top and bottom/ not getting much better. had been walking 2 miles a day at work. ???Communication Needs:?Communication Needs?Does the patient have a hearing impairment?No,?Does the patient have a vision impairment??Yes,?If yes, what is the vision impairment??Glasses,?Does the patient have a cognition impairment??No.?SDOH Questions:?SDOH Questions?In the past year have you been worried about losing housing??No,?In the past year have you or any family members you live with been unable to get any of the following when it was really needed? Check all that apply:?None.? * ROS:?General/Constitutional:?Patient denies?fatigue , headache.?Change in appetite?denies.?Chills?denies.?Fever?denies.?Ophthalmologic:?Blurred vision?denies.?Discharge?denies.?Pain?denies.?ENT:?Patient denies?decreased sense of smell , any loss of taste , sore throat.?Decreased hearing?denies.?Sore throat?denies.?Swollen glands?denies.?Endocrine:?Cold intolerance?denies.?Excessive thirst?denies.?Heat intolerance?denies.?Weight loss?denies.?Respiratory:?Cough?denies.?Shortness of breath at rest?denies.?Shortness of breath with exertion?denies.?Wheezing?denies.?Cardiovascular:?Chest pain at rest?denies.?Chest pain with exertion?denies.?Irregular heartbeat?denies.?Shortness of breath?denies.?Gastrointestinal:?Abdominal pain?denies.?Change in bowel habits?denies.?Diarrhea?denies.?Nausea?denies.?Rectal bleeding?denies.?Vomiting?denies .?Genitourinary:?Blood in urine?denies.?Difficulty urinating?denies.?Frequent urination?denies.?Musculoskeletal:?Patient denies?muscle aches.?Painful joints?denies.?Weakness?denies.?Peripheral Vascular:?Patient denies?red and blue toes.?Skin:?Dry skin?denies.?Itching?denies.?Denies?Mole(s),? changes in moles, new moles or any lesions of concern.?Denies?Photosensitivity.?Rash?denies.?Neurologic:?Dizziness?denies.?Fainting?denies.?Headache?denies.? * Medical History:? * Surgical History:? * Hospitalization/Major Diagno stic Procedure:? * Family History:?Father: dece ased 63 yrs.?Mother: alive 89 yrs, family history unknown .?3 brother(s) , 1 sister(s) . 1 son(s) , 2 daughter(s) . .? father decesed [place] Mother Healthy, Denies mental health/substance abuse family history, Denies mental health/substance abuse family history, Denies mental health/substance abuse family history, Denies mental health/substance abuse family history. * Social History:?Tobacco Use:?Tobacco Use/Smoking?Patient is a?nonsmoker,?Additional Findings: Tobacco Non-User?Current non-smoker, currently using no form of tobacco.?Drugs/Alcohol:?Alcohol Screen?Did you have a drink containing alcohol in the past year??Yes,?How often did you have a drink containing alcohol in the past year??2 to 4 times a month (2 points),?How many drinks did you have on a typical day when you were drinking in the past year??1 or 2 drinks (0 point),?How often did you have 6 or more drinks on one occasion in the past year??Never (0 point),?Points?2,?Interpretation?Negative.?Miscellaneous:?Caffeine: yes, 1-2 cups per day. Children: yes. no Community involvements. Exercise: yes, bike half hour 4 times a week. Housing: owning. Living with: spouse, , family 2 kids are in college who come back and forth. Marital status: . Occupation: works full-time. Pets: dog. no Travel outside of the [place], none. * Medications:?TakingIrbesarta n-hydroCHLOROthiazide 150-12.5 MG Tablet TAKE ONE TABLET BY MOUTH ONCE DAILY Medication List reviewed and reconciled with the patientTaking Irbesartan-hydroCHLOROthiazide 150-12.5 MG Tablet TAKE ONE TABLET BY MOUTH ONCE DAILY Medication List reviewed and reconciled with the patient * Allergies:?N.K.D.A.yes[Aller gies Verified] Objective: * Vitals:?Ht: 72, Wt:194, BMI: 26.31, BP:132/70 weight is down 3 pounds since 02-03-22. * ???Past Orders: ???Lab:Comprehensive [place]. P hugh Fast (Order Date - 02/01/2023) (Collection Date - 02/01/2023) ? Value Reference Range ?Sodium 140 135-145 - mmo l/L ?Bilirubin Total 0.6 0.0- 1.0 - mg/dL ?Aspartate Amino Transferase 20 5-37 - U/L ?Alanine Aminotransferase 28 0-40 - U/L ?Total Protein 7.2 6.5-8. 0 - g/dL ?Albumin Level 4.4 3.5-5. 0 - g/dL ?Alkaline Phosphatase 59 39-117 - U/L ?Potassium 4.0 3.3-5.1 - mmol/L ?Chloride 102 96-108 - mm ol/L ?Carbon Dioxide 31 H 22-29 - mmol/L ?Anion Gap 11 L 12-20 - ?Blood Urea Nitrogen 13 9-16 - mg/dL ?Creatinine 0.77 0.5-1.4 - mg/dL ?Estimated Glomerular Filt Rate > 60 - ?Glucose Fasting 91 60-9 9 - mg/dL ?Calcium 9.3 8.4-10.2 - m g/dL ???Lab:Lipid Panel (Order Da te - 02/01/2023) (Collection Date - 02/01/2023) ? Value Reference Range ?Triglycerides 68 <150 - mg/dL ?Cholesterol 204 H <200 - m g/dL ?LDL Cholesterol Calculated 135 H <100 - mg/dL ?HDL Cholesterol 56 >40 - mg/dL ???Lab:PSA,Total (Free>4and< 10) (Order Date - 02/01/2023) (Collection Date - 02/01/2023) ? Value Reference Range ?PSA,Total (Free>4and<10) 0.77 0.00-4.00 - ng/mL ???Lab:UA ClnCatch+Micro w/r flx Cult (Order Date - 02/01/2023) (Collection Date - 02/01/2023) ? Value Reference Range ?Color Urine Yellow - ?Appearance Urine Clear - ?PH 7.5 5.0-9.0 - ?Glucose Urine UA Negative Neg ative - mg/dL ?Urine Blood Negative Negative - ?Specific [place] - Urine 1.015 1.005-1.025 - ?Urine Protein Negative Neg-Tr dori - mg/dL ?Urine Ketones Negative Negati ve - mg/dL ?Nitrite Urine Negative Negati ve - ?Leukocyte Esterase Urine Negative Negative - ?RBC Urine 0-2 0-2 - /HPF ?WBC Urine 0-5 0-5 - /HPF ?Squamous Epithelial Cell Urine 0-2 0-2 - /HPF ?Bacteria Urine None Seen None Seen - ?Hyaline Casts Urine 0-2 0-2 - /LPF ???Lab:Complete Blood Count Auto Diff (Order Date - 02/01/2023) (Collection Date - 02/01/2023) ? Value Reference Range ?White Blood Count 5.0 4. 8-10.8 - X10*3/uL ?Red Blood Count 4.57 L 4.60 -5.80 - X10*6/uL ?Hemoglobin 14.2 14.0-18.0 - g/dl ?Hematocrit 41.4 L 42.0-52.0 - % ?Mean Corpuscular Volume 90.6 80.0-98.0 - fL ?Mean Corpuscular Hemoglobin 31.1 27.0-33.0 - pg ?Mean Corpuscular HGB Conc 34.3 31.0-36.0 - g/dl ?Red Cell Distribution Width 12.2 11.0-16.0 - % ?Platelet Count 270 160-4 00 - X10*3/uL ?Mean Platelet Volume 10.5 9.4-12.4 - fL ?Neutrophils Percent Auto 61.1 45-73 - % ?Imm Gran Pct Auto 0.4 0. 0-0.4 - % ?Lymphocytes Percent Auto 25.5 20-40 - % ?Monocytes Percent Auto 11.4 H 2-11 - % ?Eosinophils Percent Auto 1.4 0-4 - % ?Basophils Percent Auto 0.2 0-2 - % ?NRBC Pct Auto 0.0 0.0-0. 2 - /100WBC ?Neutrophils Absolute Auto 3.0 2.0-8.3 - x10*3/uL ?Imm Gran Abs Auto 0.02 0. 00-0.03 - X10*3/uL ?Lymphocytes Absolute Auto 1.3 1.2-4.9 - X10*3/uL ?Monocytes Absolute Auto 0.6 0.1-1.2 - X10*3/uL ?Eosinophils Absolute Auto 0.1 0.0-0.4 - X10*3/uL ?Basophils Absolute Auto 0.0 0.0-0.2 - X10*3/uL ?NRBC Abs Auto 0.000 0.0-0. 012 - X10*3/uL * Examination: ???General Examination: ?GENERAL APPEARANCE:?well developed, well nourished, in no acute distress.?HEAD:?normocephalic, atraumatic.?EYES:?pupils equal, round, reactive to light and accommodation, sclera non-icteric.?EARS:?normal.?ORAL CAVITY:?mucosa moist.?THROAT:?clear.?NECK/THYROID:?neck supple, full range of motion, no cervical lymphadenopathy, no bruits.?SKIN:?warm and dry, no suspicious lesions.?HEART:?regular rate and rhythm, S1, S2 normal, no murmurs.?LUNGS:?clear to auscultation bilaterally.?ABDOMEN:?soft, nontender, nondistended, bowel sounds present, normal, no organomegaly , no masses palpable.?RECTAL EXAM:?normal tone, no external hemorrhoids, no masses palpable, prostate normal, stool guaiac negative.?MALE GENITOURINARY:?circumcised, no penile lesions or discharge.?EXTREMITIES:?no clubbing, cyanosis, or edema.?NEUROLOGIC:?nonfocal, motor strength normal upper and lower extremities, sensory exam intact.? Assessment: * Assessment: 1.?Annual physical exam - Z0 0.00 (Primary)?2.?Capsulitis of toe of left foot - M77.52?3.?Colon cancer screening - Z12.11?4.?Essential hypertension - I10?5.?Hypercholesterolemia - E78.00?6.?Depression screening - Z13.31? Plan: * Treatment: 2.?Capsulitis of toe of left foot? Notes: referral to dr travis/ patient will be calling office to book their own appt.?? 3.?Colon cancer screening?LAB: Occult Blood, Stool, Guaiac?Negative ? Value Reference Range ?Occult Blood, Stool, Guaiac Neg Notes: referral to dr tucker/ patient will be calling office to book their own appt, guaiac negative.??4.?Essential hypertension? Notes: stable, will continue current regiment.??5.?Hypercholesterolemia? Notes: stable, will continue current regiment.??6.?Depression screening? Notes: negative screen.?? * Procedure Codes:?49910 TEST FOR BLOOD, FECES * Follow Up:?1 Year * * Sign off status: Completed true * Provider:?Dominick Cruz MD Date:?0 02/08/2023 Generated for Mary nagy/Yousif/eTalbaro on:?03/04/2024 11:57 AM EST History and Physical Notes * HPI (History of Present Illness) Category Sub-Category Detail Notes Category Not es Depression Screening PHQ-9 Little inte rest or pleasure in doing things: Not at all patient is a 57 yo male here for yearly evaluation with review of recent labs and follow up of chronic isues. / left foot has been bothering/ on the top and bottom/ not getting much better. had been walking 2 miles a day at work. Feeling down, depressed, or hopeless: No t at all Trouble falling or staying asleep, or sl eeping too much: Not at all Feeling tired or having little energy: N ot at all Poor appetite or overeating: Not at all Feeling bad about yourself o r that you are a failure, or have let yourself or your family down: Not at all Trouble concentrating on thi ngs, such as reading the newspaper or watching television: Not at all Moving or speaking so slowly that other people could have noticed; or the opposite, being so fidgety or restless that you have been moving around a lot more than usual: Not at all Thoughts that you would be b cain off or of hurting yourself in some way: Not at all Total Score: 0 Interpretation and Intervention Depression Boyd bhagat Findings: Negative Follow-Up for Depression: : review of PH Q-9 found negative result, no follow-up needed SDOH Questions SDOH Questions In the past year have you been worried about losing housing?: No In the past year have you or any family members you live with been unable to get any of the following when it was really needed? Check all that apply:: None Communication Needs Communication Needs Does the patient have a hearing impairment: No Does the patient have a vision impairmen t?: Yes ?If yes, what is the vision impairment?: Glasses Does the patient have a cognition impair ment?: No Examination Category Sub-Category Detail Notes Category Not es General Examination GENERAL APPEARANCE: well dev eloped, well nourished, in no acute distress HEAD: normocephalic, atrau matic EYES: pupils equal, round, reactive to light and accommodation, sclera non- icteric EARS: normal THROAT: clear NECK/THYROID: neck supple, full ra nge of motion, no cervical lymphadenopathy, no bruits HEART: regular rate and rhy thm, S1, S2 normal, no murmurs LUNGS: clear to auscultatio n bilaterally ABDOMEN: soft, nontender, non distended, bowel sounds present, normal, no organomegaly , no masses palpable NEUROLOGIC: nonfocal, motor stre ngth normal upper and lower extremities, sensory exam intact SKIN: warm and dry, no franklin picious lesions EXTREMITIES: no clubbing, cyanosi s, or edema MALE GENITOURINARY: circumcised, no peni le lesions or discharge RECTAL EXAM: normal tone, no exte rnal hemorrhoids, no masses palpable, prostate normal, stool guaiac negative ORAL CAVITY: mucosa moist
--- OUTSIDE RECORDS SUMMARY | 2024-03-04 11:57 | XMS_ITS ---
Author Organization [facility] Address [address] [place] [address] Care Team Providers Care Manager English Name Role Phone Nancy BALDERRAMA, Dominick Primary Care Provider Jamar Austin Jr REASON FOR VISIT screening Encounters Encounter Location Date Provider Diagnosis [facility] Outpatient [address] [place] [phone] 08/17/2023 Jamar Muhammad Jr Encounter for screening colonoscopy Z12.11 ASSESSMENTS Encounter Date Diagnosis Assessment Notes Treatment Notes Treatment Clinical Notes 08/17/2023 Encounter for screening colonoscopy (ICD-10 - Z12.11) PLAN OF TREATMENT No Information
--- OUTSIDE RECORDS SUMMARY | 2024-03-04 11:57 | XMS_ITS ---
Author Organization [facility] Address [address] [place] [address] Care Team Providers Care Info Analyst Name Role Phone Dominick Cruz MD Primary Care Provider Valdo Damon [phone] REASON FOR VISIT 2nd toe Capsulitis Encounters Encounter Location Date Provider Diagnosis [address] [address] 06/13/2023 Valdo Marcelino Plan Of Treatment No Information Progress Notes * Eder NARVAEZ PDOB: [birth year] (58 yo M)Acc No.[id number]:06/13/2023 Patient:?Eder Narvaez :1965???Age:58 Y???Sex:Male Address:[address] [place] [address], [id number] * true * Date:? Generated for Michaeli yakov/Yousif/eTransmitting on:?03/04/2024 11:56 AM EST
--- OUTSIDE RECORDS SUMMARY | 2024-03-04 11:58 | XMS_ITS ---
Author Organization [facility] Address [address] [place] [address] Care Team Providers Care Certified Ski Patroller Name Role Phone Dominick Cruz MD Primary Care Provider Jamar Austin Jr REASON FOR VISIT prior authorization Encounters Encounter Location Date Provider Diagnosis [facility] [address] [place] [address] 07/04/2023 Jamar Muhammad Jr PLAN OF TREATMENT No Information
--- OUTSIDE RECORDS SUMMARY | 2024-03-04 11:58 | XMS_ITS ---
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 Hand Name Role Phone Dominick Cruz MD Primary Care Provider Valdo Damon Unavailable [phone] Allergies No Known Allergies REASON FOR VISIT Foot pain Medications Medication SIG (Take, Route, Frequency, Duration) [...] 05/01/2023 Encounters Encounter Location Date Provider Diagnosis [facility] [address] [place] [address] 05/01/2023 Valdo Marcelino Pain in left foot M79.672 ; Pain in left ankle and joints of left foot M25.572 ; Bursitis of intermetatarsal bursa of left foot M77.52 and Metatarsalgia, left foot M77.42 Assessments Encounter Date Diagnosis (ICD Code) Assessment Notes Treatment Notes Treatment Clinical Notes Section Notes 05/01/2023 Pain in left foot (ICD-10 - M79.672) 05/01/2023 Pain in left ankle and joints of left foot (ICD-10 - M25.572) 05/01/2023 Bursitis of intermetatarsal bursa of left foot (ICD-10 - M77.52) 05/01/2023 Metatarsalgia, left foot (ICD-10 - M77.42) Plan Of Treatment Pending Test Test Name Order Date X ray : Foot, left 3V 05/01/2023 Next Appt Details Follow Up: prn, Reason: Progress Notes * Eder NARVAEZ PDOB: [birth year] (58 yo M)Acc No.[id number]:05/01/2023 Progress Notes Patient:?Eder NARVAEZ P Provider:?Valdo Marcelino DPM :1965???Age:58 Y???Sex:Male Prasad e:05/01/2023 Address:[address] [place], [place] [id number] Pcp:Dominick Cruz MD Subjective: * Chief Complaints: * ???Foot pain * HPI: ???Foot Pain:?Location:?Bottom, Forefoot, LEFT.?Duration:?several weeks.?Onset:?exercise.?Course:?worse.?Treatments:?rest/alter normal daily activity , change in shoes to Giron from [employer].? * ROS:?General/Constitutional:?Nausea?denies.?Vomiting?denies.?Hunger Thirst?denies.?Loss appetite?denies.?Chills?denies.?Fatigue?denies.?Fever?denies.?Night Sweats?denies.?Unexplained weight loss?denies.?Unexplained weight gain?denies.?HEENTM:?Dentures?denies.?Dizziness?denies.?Glasses/contacts?admits.?Retinopathy?de nies.?Blurred/double vision?denies.?TMJ?denies.?Discharge/drainage?denies.?Implants?denies.?Sore throat?denies.?Dental implants?denies.?Hard of hearing ?denies.?Difficulty chewing/swallowing/speaking?denies.?Nose bleeds?denies.?Sore mouth?denies.?Respiratory:?On Oxygen?denies.?Pneumonia/pleurisy?denies.?Bronchitis?denies.?Emphysema?denies.?C oughing?denies.?Cough blood?denies.?Shortness of breath?denies.?Wheezing?denies.?Cardiovascular:?Pacemaker?denies.?MVP?denies.?WPW?denies.?CHF?denies.?Heart attack?denies.?Septal defect?denies.?Rapid beat?denies.?Chest pain ?denies.?Atrial Fib.?denies.?Murmur/Palpitations?denies.?Gastrointestinal:?Hemorrhoids?denies.?Stomach/Abdominal pain?denies.?Dark blood stool?denies.?Irritable bowel ?denies.?Constipation?denies.?Diarrhea?denies.?Hematology:?Swelling?denies.?Clots?denies.?Varicose Veins?denies.?Bruising?denies.?Bleeding problem?denies.?Genitourinary:?Blood urine?denies.?Frequent/Painfu/urination/bladder control?denies.?Kidney stones?denies.?Infection (UTI)?denies.?Nephropathy?denies.?sex trans dis (STD)?denies.?Prostate?denies.?Musculoskeletal:?Hammertoes?denies.?Bunions?denies.?Back Pain?denies.?Muscle Cramps/ Resting?denies.?Muscle cramps / walking?denies.?Generalized aches and pains?denies.?Weakness?denies.?Integ.:?Hooks?denies.?Scars?denies.?Corns/calluses?denies.?Ingrown nails?denies.?Painful nails?denies.?Open Sores?denies.?Rashes?denies.?Neurologic:?Difficulty sleeping?denies.?Brain disorder?denies.?Numbness?denies.?Balance trouble?denies.?Confusion?denies.?Fainting/blackouts?denies.?Tingling?denies.?Tr emors?denies.? * Medical History:? * Surgical History:?hernia * Hospitalization/Major Diagno stic Procedure:?Denies Past Hospitalization * Family History:?Mother: yamini fox?Father: , heart attack, diagnosed with Unspecified heart disease.?Siblings: cancer- sister, diagnosed with Other malignant neoplasm of unspecified site.? * Social History:?Tobacco Use:?Tobacco Use/Smoking?Are you a:?nonsmoker ?Tobacco use other than smoking?Are you an other tobacco user??No ???Drugs/Alcohol:?Drugs?Have you used drugs other than those for medical reasons in the past 12 months??No ?Alcohol Screen?Did you have a drink containing alcohol in the past year??Yes ?How often did you have a drink containing alcohol in the past year??2 to 4 times a month (2 points) ?Points?2 ?Interpretation?Negative ???Miscellaneous:?Caffeine: yes, 3 cups daily, coffee/tea. ?Children: yes. ?Exercise: yes, walking, jogging, excersise bike. ?Marital status: . ?Occupation: [employer] * Medications:?TakingIrbesarta n-hydroCHLOROthiazide 150-12.5 MG Tablet 1 tablet Orally Once a day Taking Irbesartan-hydroCHLOROthiazide 150-12.5 MG Tablet 1 tablet Orally Once a day Not-Taking/PRNNight Splint AFO - L1930 as directed Medication List reviewed and reconciled with the patientNot-Taking/PRN Night Splint AFO - L1930 as directed Medication List reviewed and reconciled with the patient * Allergies:?N.K.D.A.yes[Aller gies Verified] Objective: * Vitals:?Ht: 6ft 0in, Wt:190, BMI:25.77, Shoe size: 11.5, Ht-cm: 182.88 cm, Wt- k.18 kg. * Examination: ???Orthopedic: ?MUSCLE STRENGTH:?5/5 all groups in a symmetrical fashion , B/L.?GAIT ABNORMALITY:?antalgic.?FOOT MORPHOLOGY:? Pes Cavus structure, Semi-flexible.?MPJ PATHOLOGY:? Pain, swelling, and inflammation to plantar MPJ(s), 2nd, LEFT, No MPJ pain with ROM, [ - ] Ecchymosis.?X-Rays - IMAGING REPORT: ?Clinical Indication(s):? Evaluate for Fracture.?Views:? 3 views of Foot, AP, LAT, LO, LEFT.?Findings:?normal bone and soft tissue density consistent for patients age and sex, elongated plantarflexed [ 2nd] metatarsal with hypertrophied MTH.?Fracture:?Negative fractures identified.?Neurological: ?SENSORY:?Neurological exam reveals intact sensorium, pain sensation normal, vibration sensation intact, pinprick sensation is normal in the lower extremities, Pt denies, anesthesia, burning, paresthesia, tingling, B/L.?TINEL'S COMPRESSION:? Negative tarsal tunnel, benito pedis, and medial calcaneal nerves, Left , Negative tarsal tunnel, benito pedis, and medial calcaneal nerves.?DEEP TENDON REFLEXES:?Achilles, 2/4, B/L.?Neuroma Pain: ?PALPATION:?No interspace pain noted on palpation, LEFT.?General Examination: ?GENERAL APPEARANCE:?Reveals a pleasant, alert, well nourished, well developed, well hydrated individual, who demonstrates proper attention to hygene/body habitus, and is in no acute distress.?ORIENTED:?person, place, and time.?Vascular: ?DP PULSES (B):?3/4, B/L.?PT PULSES (B):?3/4, B/L.?CAPILLARY FILL TIME:?immediate, all digits, B/L.?TROPHIC CONDITION-TEXTURE/ELASTICITY/TURGOR/HAIR GROWTH (B):?normal, B/L.?TEMPERTURE GRADIENT (C):?warm to cool, proximal to distal, B/L.?PIGMENTATION:?normal, B/L.?EDEMA (C):?absent, B/L.?Dermatologic: ?SKIN FINDINGS:?Skin exam reveals normal texture, elasticity, and turgor. There are no masses. The interspaces are clear.? Assessment: * Assessment: 1.?Pain in left ankle and bre ints of left foot - M25.572???2.?Pain in left foot - M79.672 (Primary)???3.?Bursitis of intermetatarsal bursa of left foot - M77.52???4.?Metatarsalgia, left foot - M77.42???Specify :Dx New problem, Prognosis Uncertain (4),Acute problem, Complicated w/ Multiple Tx Options(4)??? Plan: * Treatment: * Procedure Codes:?03919 X-RAY EXAM OF LEFT FOOT 3V, Modifiers: 26 , LT * Preventive Medicine:? ??Counseling:?Discussion:?-04: Office or other outpatient visit for the evaluation and management of a new patient, which required a medically appropriate history and/or examination and MODERATE level of DECISION MAKING for: 1 OR MORE CHRONIC PROBLEM(S) THATS WORSENING, 2 STABLE CHRONIC PROBLEMS, A NEWLY DIAGNOSED PROBLEM WITH UNCERTAIN PROGNOSIS, AN ACUTE COMPLICATED INJURY WITH MULTIPLE TREATMENT OPTIONS, OR AN ACUTE PROBLEM WITH ACCOMPANYING SYSTEMIC SYMPTOMS, THAT POSE(S) A MODERATE RISK OF MORBIDITY. THIS CONDITION MAY ALSO INCLUDE RX DRUG MANAGEMENT, OR A DECISON FOR MINOR SURGERY. The visit on the day of the encounter encompassed interpreting the data and educating the patient as to the nature of their condition, treatment options available according to their individual PMH, meds, allergies, and overall health/living conditions, as well as any potential risks or complications that may occur from a failure to adhere to, and participate in, the recommended course of therapy. The discussion included a complete verbal, and/or written explanation of the examination results, any x-rays taken, the proposed diagnosis, and outline of the treatment plan. A schedule for future care needs was also explained. The patient verbalized an understanding of the instructions at this time and agreed to be an active participant in their treatment. If the patient should think of any questions or concerns after the visit, I have encouraged the patient to call the office.?Metatarsalgea:?I explained to the patient the possible etiologies of their Metatarsalgea Foot pain, including foot type/shoegear/activity level/exercise routine and the risks/benefits of all the different treatment options for pain including: No treatment at all, Rest, Ice, NSAIDs(only if well tolerated after meals), New/supportive Shoegear, Strappings and Tapings, Foot/Ankle AFO Bracing, Stretching exercises, Deep Tissue Massage, Arch support/shoe inserts, Custom orthoses, Topical analgesics including Aspercream/Voltaren gel, Physical Therapy, Cortisone injection therapy, EPAT/ESWT. Advantages and disadvantages of each option were discussed and the patients questions re: shoegear, custom vs prefabricated inserts, activity level, PO vs Topical medications (and their respective potential complications/drug interactions/side effects), and consistency in home treatment regimens for optimal success were answered to their verbally confirmed satisfaction.?Orthotics:?I explained to the patient the benefits of OT use. I explained that orthoses are medically necessary to decrease the foot pain through proper mechanical control, support of their foot, decrease pain under the painful metatarsal by supplementing the soft tissue, cushion the forefoot by supplementing the soft tissue.?P.R.I.C.E.:?The patient was counseled on the use of P.R.I.C.E. and NSAIDS (if well tolerated) to aid in the recovery from their painful condition.?Podiatric Surgery Counseling:?Surgical procedures to treat the patients foot problem were discussed. We reviewed the risks of the procedure (described below) vs not having the procedure (persistent pain, deformity, risk for skin ulceration/infection, loss of toe). We discussed the potential procedure complications including, but not limited to: pain, swelling, bleeding, scarring, numbness, infection, delayed/non healing, floppy/unstable/shorthened toe, recurrence, failure of the procedure, overcorrection leading to plantarflexed/downward positioned toe, recurrence, need for further surgery, as well as the possibility for loss of the toe itself. We discussed the use of IV/Local anesthesia, and the usual post-op course for healing. No guarentees were given. The patient verbally indicated a full understanding of the above conversation, and any other of their questions were answered to their satisfaction.?Shoe Gear Counseling:?The patient and I reviewed the types of shoes they should be wearing. My recommendation included obtaining a well-fitted shoe with a good supportive, non-foldable nor twistable sole, plenty of toe/room for the forefoot, and proper arch support. Based on todays examination, I recommended the patient look for new shoes, by having their feet professionally measured. We discussed that generally the best time of the day for a shoe fitting is the afternoon. Different shoes types and brands to best match the patients occupation and vocation were discussed. Specific brand selection will be up to the patient, their individual foot condition/deformities, and fit. The patient and I reviewed the standard new shoe break in period by wearing them for a few hours a day while checking for redness or sores as wear time is increased. The patient verbally confirmed to understanding the information discussed.?Steriod Injection:?I explained that a steroid and local anesthetic injections are administered to relieve pain and inflammation and thereby meant to improve function. I explained the possible complications including but not limited to signs/symptoms of steroid flare, infection, bruising, atrophy, discoloration of skin, change/deviation in toe position, and that additional injections may be necessary, cortisone post-injection informative educational handout was dispensed to and reviewed with the patient.? * Follow Up:?prn * Images: * Sign off status: Completed true * Provider:?Valdo Marcelino DPM Date:?2023 Generated for Mary nagy/Yousif/Eddieitting on:?03/04/2024 11:57 AM EST History and Physical Notes * HPI (History of Present Illness) Category Sub-Category Detail Notes Category Not es Foot Pain Location: Bottom, Forefoot, LEFT Duration: several weeks Onset: exercise Course: worse Treatments: rest/alter normal da mike activity , change in shoes to Giron from [employer] Examination Category Sub-Category Detail Notes Category Not es Neuroma Pain PALPATION: No interspace pain noted on palpation, LEFT Neurological SENSORY: Neurological exa m reveals intact sensorium, pain sensation normal, vibration sensation intact, pinprick sensation is normal in the lower extremities, Pt denies, anesthesia, burning, paresthesia, tingling, B/L TINEL'S COMPRESSION: Negative tarsal jessica moses, benito pedis, and medial calcaneal nerves, Left , Negative tarsal tunnel, benito pedis, and medial calcaneal nerves DEEP TENDON REFLEXES: Achilles, 2/4, B/L Dermatologic SKIN FINDINGS: Skin exam reveal s normal texture, elasticity, and turgor. There are no masses. The interspaces are clear Orthopedic GAIT ABNORMALITY: antalgic FOOT MORPHOLOGY: Pes Cavus structure, Semi-flexible MPJ PATHOLOGY: Pain, swelling, and inflammation to plantar MPJ(s), 2nd, LEFT, No MPJ pain with ROM, [ - ] Ecchymosis MUSCLE STRENGTH: 5/5 all groups in a symmetrical fashion , B/L General Examination GENERAL APPEARANCE: Reveals a pleasant, alert, well nourished, well developed, well hydrated individual, who demonstrates proper attention to hygene/body habitus, and is in no acute distress ORIENTED: person, place, and t isiah Vascular DP PULSES (B): 3/4, B/L PT PULSES (B): 3/4, B/L CAPILLARY FILL TIME: immediate, all digi ts, B/L TEMPERTURE GRADIENT (C): warm to cool, p roximal to distal, B/L TROPHIC CONDITION-TEXTURE/ELASTICITY/TURGOR/HAIR GROWTH (B): normal, B/L EDEMA (C): absent, B/L PIGMENTATION: normal, B/L X-Rays - IMAGING REPORT Findings: normal b one and soft tissue density consistent for patients age and sex, elongated plantarflexed [ 2nd] metatarsal with hypertrophied MTH Fracture: Negative fractures i dentified Views: 3 views of Foot, AP, LAT, LO, LEFT Clinical Indication(s): Evaluate for Fra cture
== END 2024-03-04 10:50 | disposition home or self-care (01) ==
LOC: HO.LNP 10:49
PROVIDERS: Visit Provider Internal Medicine
DX: Z00.00 Encounter for general adult medical examination without abnormal findings (principal); I10 Essential (primary) hypertension; E78.00 Pure hypercholesterolemia, unspecified; Z12.5 Encounter for screening for malignant neoplasm of prostate
CPT/HCPCS: 80053; 80061; 81001; 84153; 85025